=== PATIENT | male | born 1995 | race Caucasian/White ===

== ENCOUNTER 2018-03-09 20:45 | Observation (INO) | payer SELFPAY ==
[2018-03-09] MEDS ORDERED: Sodium Chloride 0.9% 1,000 ML IV ONE (20:50)
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
[2018-03-09 21:30] LABS: CHLORIDE,CL 104 mmol/L (98-107); SODIUM,NA 142 mmol/L (136-148)
[2018-03-09] MEDS ORDERED: Ondansetron 4 MG/2 ML SDV IVPUSH ONE (21:42)
[2018-03-09] MEDS ORDERED: Lidocaine 1% with EPINEPHrine 1:100,000 20 ML MDV ONE (22:06)
[2018-03-09] MEDS ORDERED: fentaNYL 100 MCG/2 ML SDV IVPUSH ONE (22:22)
[2018-03-10] MEDS ORDERED: Acetaminophen/oxyCODONE 325-5 MG Tab PO PRN (01:13)
--- NOTE | 2018-03-10 01:25 | OR ---
SURGEON: Domingo Barlow MD DATE OF PROCEDURE: 03/09/2018 PREOPERATIVE DIAGNOSIS: Laceration on the head. POSTOPERATIVE DIAGNOSIS: Laceration on the head. PROCEDURE: Procedure performed in the emergency room trauma bay is laceration repair. Laceration is measured 6 x 3 cm and repaired with baseball stitches 4-0 Prolene. PROCEDURE IN DETAIL: The patient was told about the procedure and written consent given. Risks and benefits discussed. Timeout has been called, procedure identified; Procedure was then started. Area was irrigated copiously cleaned with normal saline, and 1% lidocaine with epi was given. Using 4-0 and 5-0 Prolene baseball simple interrupted stitches, closed the wound ; after the procedure finished, followed with appropriate dressing. The patient tolerated the procedure well. There were no intraoperative complications. Dr. Barlow was present throughout the whole procedure. JUDIE / SABRA /[id number] VINAYAK
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
--- NOTE | 2018-03-10 09:52 | PCM.SURGPN ---
- General Info Date of Service: 03/10/18 Functional Status: Reports: Pain Controlled - Review of Systems General: Reports: No Symptoms (slept overnight like a baby, no co) - Patient Data Vitals - Most Recent: Last Vital Signs Temp 98.9 F 03/10/18 08:00 Pulse 106 H 03/10/18 04:00 Resp 15 03/10/18 08:00 BP 133/94 H 03/10/18 08:00 Pulse Ox 99 03/10/18 08:00 Weight - Most Recent: 167 lb 14.4 oz I&O - Last 24 Hours: Intake & Output 03/09/18 03/10/18 03/10/18 22:59 06:59 14:59 Intake Total 200 Output Total 500 Balance -300 Lab Results Last 24 Hrs: Laboratory Results - last 24 hr 03/09/18 03/09/18 03/09/18 Range/Units 20:50 20:50 20:59 WBC 8.57 (4.0-11.0) K/uL RBC 5.21 (4.50-5.90) M/uL Hgb 16.2 (13.0-17.0) g/dL Hct 45.9 (38.0-50.0) % MCV 88.1 (80.0-98.0) fL MCH 31.1 (27.0-32.0) pg MCHC 35.3 (31.0-37.0) g/dL RDW Std Deviation 41.4 (28.0-62.0) fl RDW Coeff of Linnea 13 (11.0-15.0) % Plt Count 290 (150-400) K/uL MPV 10.30 (7.40-12.00) fL Neut % (Auto) 54.1 (48.0-80.0) % Lymph % (Auto) 37.6 (16.0-40.0) % [place] % (Auto) 7.2 (0.0-15.0) % Eos % (Auto) 0.9 (0.0-7.0) % Baso % (Auto) 0.2 (0.0-1.5) % Neut # (Auto) 4.6 (1.4-5.7) K/uL Lymph # (Auto) 3.2 H (0.6-2.4) K/uL [place] # (Auto) 0.6 (0.0-0.8) K/uL Eos # (Auto) 0.1 (0.0-0.7) K/uL Baso # (Auto) 0.0 (0.0-0.1) K/uL Nucleated RBC % 0.0 /100WBC Nucleated RBCs # 0 K/uL Sodium 142 (136-148) mmol/L Potassium 3.7 (3.5-5.1) mmol/L Chloride 104 (98-107) mmol/L Carbon Dioxide 31.2 (21.0-32.0) mmol/L BUN 12 (7.0-18.0) mg/dL Creatinine 1.3 (0.8-1.3) mg/dL Est Cr Clr Drug Dosing TNP Estimated GFR (MDRD) > 60.0 ml/min Glucose 109 H (74-106) mg/dL Calcium 8.6 (8.5-10.1) mg/dL Total Bilirubin 0.3 (0.2-1.0) mg/dL AST 27 (15-37) IU/L ALT 32 (14-63) IU/L Alkaline Phosphatase 62 (46-116) U/L Total Protein 8.0 (6.4-8.2) g/dL Albumin 4.4 (3.4-5.0) g/dL Globulin 3.6 H (2.0-3.5) g/dL Albumin/Globulin Ratio 1.2 L (1.3-2.8) Urine Opiates Screen (NEGATIVE) Ur Oxycodone Screen (NEGATIVE) Urine Methadone Screen (NEGATIVE) Ur Barbiturates Screen (NEGATIVE) Ur Phencyclidine Scrn (NEGATIVE) Ur Amphetamine Screen (NEGATIVE) U Methamphetamines Scrn (NEGATIVE) U Benzodiazepines Scrn (NEGATIVE) U Cocaine Metab Screen (NEGATIVE) U Marijuana (THC) Screen (NEGATIVE) Ethyl Alcohol 214 mg/dL Blood Type A NEGATIVE Antibody Screen NEGATIVE 03/09/18 Range/Units 23:15 WBC (4.0-11.0) K/uL RBC (4.50-5.90) M/uL Hgb (13.0-17.0) g/dL Hct (38.0-50.0) % MCV (80.0-98.0) fL MCH (27.0-32.0) pg MCHC (31.0-37.0) g/dL RDW Std Deviation (28.0-62.0) fl RDW Coeff of Linnea (11.0-15.0) % Plt Count (150-400) K/uL MPV (7.40-12.00) fL Neut % (Auto) (48.0-80.0) % Lymph % (Auto) (16.0-40.0) % [place] % (Auto) (0.0-15.0) % Eos % (Auto) (0.0-7.0) % Baso % (Auto) (0.0-1.5) % Neut # (Auto) (1.4-5.7) K/uL Lymph # (Auto) (0.6-2.4) K/uL [place] # (Auto) (0.0-0.8) K/uL Eos # (Auto) (0.0-0.7) K/uL Baso # (Auto) (0.0-0.1) K/uL Nucleated RBC % /100WBC Nucleated RBCs # K/uL Sodium (136-148) mmol/L Potassium (3.5-5.1) mmol/L Chloride (98-107) mmol/L Carbon Dioxide (21.0-32.0) mmol/L BUN (7.0-18.0) mg/dL Creatinine (0.8-1.3) mg/dL Est Cr Clr Drug Dosing Estimated GFR (MDRD) ml/min Glucose (74-106) mg/dL Calcium (8.5-10.1) mg/dL Total Bilirubin (0.2-1.0) mg/dL AST (15-37) IU/L ALT (14-63) IU/L Alkaline Phosphatase (46-116) U/L Total Protein (6.4-8.2) g/dL Albumin (3.4-5.0) g/dL Globulin (2.0-3.5) g/dL Albumin/Globulin Ratio (1.3-2.8) Urine Opiates Screen NEGATIVE (NEGATIVE) Ur Oxycodone Screen NEGATIVE (NEGATIVE) Urine Methadone Screen NEGATIVE (NEGATIVE) Ur Barbiturates Screen NEGATIVE (NEGATIVE) Ur Phencyclidine Scrn NEGATIVE (NEGATIVE) Ur Amphetamine Screen NEGATIVE (NEGATIVE) U Methamphetamines Scrn NEGATIVE (NEGATIVE) U Benzodiazepines Scrn NEGATIVE (NEGATIVE) U Cocaine Metab Screen NEGATIVE (NEGATIVE) U Marijuana (THC) Screen NEGATIVE (NEGATIVE) Ethyl Alcohol mg/dL Blood Type Antibody Screen Med Orders - Current: Current Medications Oxycodone/Acetaminophen (Percocet 325-5 Mg) 1 tab PO Q8H PRN PRN Reason: Pain Discontinued Medications Sodium Chloride (Normal Saline) 1,000 mls @ 999 mls/hr IV STAT ONE Stop: 03/09/18 21:50 Last Admin: 03/09/18 21:27 Dose: 999 mls/hr Lidocaine/Epinephrine (Xylocaine 1% With Epinephrine 1:100,000) Confirm Administered Dose 20 ml .ROUTE .STK-MED ONE Stop: 03/09/18 22:07 Last Admin: 03/09/18 23:00 Dose: 20 ml Ondansetron HCl (Zofran) 4 mg IVPUSH ONETIME ONE Stop: 03/09/18 21:43 Last Admin: 03/09/18 21:46 Dose: 4 mg - Exam GI/Abdominal Exam: Normal Bowel Sounds, Soft (head wound drsg dry; ) - Problem List Review Problem List Initiated/Reviewed/Updated: Yes - My Orders Last 24 Hours: Active Orders 24 hr Category Date Time Status Admission Status [Patient Status] [ADT] Routine ADT 03/09/18 21:44 Active Communication Order [RC] ROUTINE Care 03/09/18 23:28 Active Communication Order [RC] ROUTINE Care 03/09/18 23:29 Active Ready for Discharge [RC] PER UNIT ROUTINE Care 03/10/18 01:33 Active Regular Diet [DIET] Diet 03/10/18 Breakfast Active Cervical Spine wo Cont [CT] Stat Exams 03/09/18 20:47 Taken Head wo Cont [CT] Stat Exams 03/09/18 20:47 Taken DRUG SCREEN, URINE [URCHEM] Stat Lab 03/09/18 23:15 Ordered Acetaminophen/oxyCODONE [Percocet 325-5 MG] Med 03/10/18 01:13 Active 1 tab PO Q8H PRN Medication Orders Oxycodone/Acetaminophen (Percocet 325-5 Mg) 1 tab PO Q8H PRN PRN Reason: Pain - Assessment Assessment (Free Text/Narrative):: doing well; home, fu 1-2 wk when return to [facility] to in stitches - Plan Plan (Free Text/Narrative):: doing well; home, fu 1-2 wk when return to [facility] to in karla
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
== END 2018-03-10 09:37 | disposition home or self-care (01) ==
LOC: MW.ED 20:45 → MW.MS 22:56 → UNDOADMOB 22:56 → MW.MS 23:25
PROVIDERS: ADMIT Surgery; ATTEND Surgery
DX: S01.81XA Laceration without foreign body of other part of head, initial encounter (principal); Y93.17 Activity, water skiing and wake boarding; Z72.89 Other problems related to lifestyle; Y90.7 Blood alcohol level of 200-239 mg/100 ml
CPT/HCPCS: 12002; 36415; 70450; 72125; 80053; 80305; 85025; 86850; 86900; 86901; 96361; 96374; 99285; G0480; J2405; J7040; 99284

== ENCOUNTER 2024-10-22 00:54 | Emergency (ER) | payer BC ==
[2024-10-22 02:14] LABS: APPEARANCE,URINE CLEAR; BILIRUBIN,URINE NEGATIVE (NEGATIVE); COLOR,URINE YELLOW; GLUCOSE,URINE NEGATIVE (NEGATIVE); KETONES,URINE NEGATIVE (NEGATIVE); LEUKOCYTE ESTERASE,URINE NEGATIVE (NEGATIVE); NITRITE,URINE NEGATIVE (NEGATIVE); OCCULT BLOOD,URINE TRACE-INTACT (NEGATIVE); PH,URINE 5.5 (5.0-8.0); PROTEIN,URINE NEGATIVE (NEGATIVE); UROBILINOGEN,URINE 0.2 EU/dL (<2.0)
[2024-10-22 02:24] LABS: AMPHETAMINES SCREEN, URINE NEGATIVE (CUTOFF=500); BARBITURATE SCREEN,URINE NEGATIVE (CUTOFF=200); BENZODIAZEPINES SCREEN,URINE NEGATIVE (CUTOFF=150); BUPRENORPHINE SCREEN,URINE NEGATIVE (CUTOFF=10); METHADONE SCREEN, URINE NEGATIVE (CUTOFF=200); METHAMPHETAMINES SCREEN, URINE NEGATIVE (CUTOFF=500); OXYCODONE SCREEN,URINE NEGATIVE (CUT0FF=100); PCP SCREEN,URINE NEGATIVE (CUTOFF=25); THC SCREEN,URINE 20 NG/ML NEGATIVE (CUTOFF=50)
[2024-10-22 02:26] LABS: BACTERIA,URINE RARE (NEGATIVE); EPITHELIAL CELLS,URINE FEW (NONE-FEW); RBC,URINE 0-1 (0-2/HPF); WBC,URINE 0-1 (0-5/HPF)
[2024-10-22] MEDS: Acetaminophen 500 MG Tab PO ONE (04:18)
== END 2024-10-22 05:06 | disposition home or self-care (01) ==
LOC: MW.ED 00:54
DX: F10.120 Alcohol abuse with intoxication, uncomplicated (principal); Y90.9 Presence of alcohol in blood, level not specified
CPT/HCPCS: 80305; 81001; 99284

== ENCOUNTER 2025-05-30 06:45 | Day surgery (SDC) | payer BC ==
[2025-05-30] MEDS: Lactated Ringers 1,000 ML IV SCH (07:22)
[2025-05-30] MEDS ORDERED: Propofol 200 MG/20 ML SDV ONE ×4 (07:32→08:33)
== END 2025-05-30 09:30 | disposition home or self-care (01) ==
LOC: MW.SDS 06:45
PROVIDERS: ATTEND Surgery
DX: D12.3 Benign neoplasm of transverse colon (principal); K29.70 Gastritis, unspecified, without bleeding; R15.9 Full incontinence of feces; K64.4 Residual hemorrhoidal skin tags; K64.8 Other hemorrhoids; K92.1 Melena; Z80.0 Family history of malignant neoplasm of digestive organs; Z87.891 Personal history of nicotine dependence; Z79.899 Other long term (current) drug therapy
CPT/HCPCS: 43239; 45380; J2003; J2704; J7120; 00813